=== PATIENT | male | born 1935 | race Caucasian/White ===

== ENCOUNTER 2017-01-23 21:39 | Inpatient (IN) | payer OTHER, MEDICARE ==
[~2017-01-23] VITALS: Ht 175.3 cm; Wt 84.6 kg
[~2017-01-23 21:39] MED LIST: ASPI81 PO; CARD240C6 PO; CITA20TA4 PO; GLUCTAB OR; LORTA5 PO; MAGN420T PO; METO100T PO; NAPR250T57 PO; POTA20IN3 PO; PROBCAP4 PO; PROT40TA PO; ROSU40 PO; SACU1TAB7; VITA400C28 PO
[2017-01-23 21:43] VITALS: BP 145/77; PULSE 77; RESP 18; TEMP 97.3; O2SAT 79; O2SAT 95
[2017-01-23] MEDS ORDERED: methylPREDNISolone SOD SUCC 125 MG/2 ML VIAL IV PUSH ONE (22:15)
[2017-01-23] MEDS ORDERED: LIDOCAINE VISCOUS 2% SOLN 15 ML UDC PO ONE (22:15)
[2017-01-23] MEDS ORDERED: ALUMINUM/MAGNESIUM/SIMETH 30 ML CUP PO ONE (22:15)
[2017-01-23] MEDS ORDERED: SODIUM CHLORIDE 0.9% FLUSH 10 ML FLUSH IV FLUSH PRN (22:15)
--- NOTE | 2017-01-23 22:17 | PD ---
HPI Chief Complaint: Respiratory Symptoms Time Seen by Provider: 21:55 Travel History International Travel<30 days: No Contact w/Intl Traveler<30days: No Traveled to known affect area: No History of Present Illness HPI 81-year-old male here for evaluation of sore throat, intermittent episodes of difficulty breathing, cough, and lightheadedness. Symptoms started yesterday with sore throat. The patient had 5 episodes today where he felt as though his throat may be closing. He is able to swallow and tolerate his secretions without difficulty. Sore throat is moderate to severe. He has had a nonproductive cough today. States he has felt warm, but is unsure if he has had a fever. Feels as though his voice is hoarse. He has no known allergies. PFSH Past Medical History Hx Anticoagulant Therapy: Yes (Eliquis ) Arthritis: Yes Autoimmune Disease: Yes (JOINT DISEASE-CARTILEDGE) Cardiovascular Problems: Yes (A Fib, pacemaker, AL, stents, HTN, high chol) High Cholesterol: Yes Chest Pain: Yes Diabetes: Yes (type 2 ) Diminished Hearing: Yes (HEARING AIDS) Gastrointestinal Disorders: Yes (GASTRITIS, ESOPHAGITIS) GERD: Yes Genitourinary: No Hypertension: Yes Kidney Stones: Yes Musculoskeletal: Yes (BILATERAL KNEES) Neurologic: No Respiratory: No Immunizations Current: Yes Myocardial Infarction: Yes (1986) Sleep Apnea: Yes (USES CPAP) Past Surgical History Abdominal Surgery: Yes (APPENDECTOMY) Appendectomy: Yes Cardiac Surgery: Yes (PACEMAKER 2003, REPLACED 2009) Eye Surgery: Yes (CATARACTS) Joint Replacement: Yes (BILATERAL KNEE REPLACEMENT 11-17) Pacemaker: Yes (2003 GEN CHANGE 2009, [employer]) Social History Alcohol Use: Yes (DAILY GLASS OF WINE) Tobacco Use: No Substance Use: No Allergies-Medications (Allergen,Severity, Reaction): Coded Allergies: No Known Allergies (Verified Adverse Reaction, Unknown, 01/23/17) Reported Meds & Prescriptions Reported Meds & Active Scripts Active Reported Losartan (Losartan Potassium) 25 Mg Tab 25 Mg PO DAILY Metoprolol Succinate ER 24 HR (Metoprolol Succinate) 200 Mg Tab 200 Mg PO DAILY Magnesium Oxide 400 Mg Tab 400 Mg PO BID Rosuvastatin (Rosuvastatin Calcium) 40 Mg Tab 40 Mg PO DAILY Metformin ER (Metformin HCl) 500 Mg Heena 500 Mg PO DAILY With evening meal Eliquis (Apixaban) 5 Mg Tab 5 Mg PO BID Diltiazem ER 24 HR 360 Mg Caper 360 Mg PO DAILY Vitamin B-12 ER (Cyanocobalamin) 2,000 Mcg Tab 2,000 Mcg PO DAILY Vitamin D-1000 (Cholecalciferol) 1,000 Unit Tab 1,000 Units PO DAILY [Lactose Intolerance] 1 Tab PO DAILY [4X Probiotic] 1 Tab PO DAILY Eplerenone 25 Mg Tab 25 Mg PO BID Review of Systems Except as stated in HPI: all other systems reviewed are Neg Physical Exam Narrative GENERAL: Well-developed, well-nourished, comfortable, no apparent distress. SKIN: Focused skin assessment warm/dry. No rashes. HEAD: Atraumatic. Normocephalic. EYES: Pupils equal and round. No scleral icterus. No injection or drainage. ENT: No nasal bleeding or discharge. Mucous membranes pink and moist. Pharynx with moderate edema. Uvula is midline. No exudates. No drooling or stridor. No trismus. NECK: Trachea midline. No JVD. No obvious edema or masses. No induration. CARDIOVASCULAR: Regular rate and rhythm. RESPIRATORY: No accessory muscle use. Clear to auscultation. Breath sounds equal bilaterally. GASTROINTESTINAL: Abdomen soft, non-tender, nondistended. MUSCULOSKELETAL: No obvious deformities. No clubbing. No cyanosis. No edema. NEUROLOGICAL: Awake and alert. No obvious cranial nerve deficits. Motor grossly within normal limits. Normal speech. PSYCHIATRIC: Appropriate mood and affect; insight and judgment normal. Data Data Last Documented VS Vital Signs Date Time Temp Pulse Resp B/P (MAP) Pulse Ox O2 Delivery O2 Flow Rate FiO2 01/23/17 23:55 62 18 136/72 (93) 94 Room Air 01/23/17 21:43 97.3 Orders Orders Complete Blood Count With Diff (01/23/17 22:02) Comprehensive Metabolic Panel (01/23/17 22:02) Prothrombin Time / Inr (Pt) (01/23/17 22:02) Act Partial Throm Time (Ptt) (01/23/17 22:02) Iv Access Insert/Monitor (01/23/17 22:02) Ecg Monitoring (01/23/17 22:02) Oximetry (01/23/17 22:02) Sodium Chloride 0.9% Flush (Ns Flush) (01/23/17 22:15) Al-Mag Hy-Si 40-40-4 Mg/Ml Liq (Mag-Al P (01/23/17 22:15) Lidocaine 2% Viscous (Xylocaine 2% Visco (01/23/17 22:15) Methylprednisolone So Succ Inj (Solumedr (01/23/17 22:15) Ct Soft Tiss Neck W Iv Cont (01/23/17 ) Chest, Single Ap (01/23/17 ) Platelet Count (Plt) (01/23/17 22:36) Influenzae A/B Antigen (01/23/17 22:45) Group A Rapid Strep Screen (01/23/17 22:45) Fibrinogen (01/23/17 22:58) Strep Culture (Group A) (01/23/17 22:48) Iohexol 350 Inj (Omnipaque 350 Inj) (01/23/17 23:24) Labs Laboratory Tests Test 01/23/17 22:01 01/23/17 22:45 01/23/17 23:00 White Blood Count 8.6 TH/MM3 Red Blood Count 4.83 MIL/MM3 Hemoglobin 14.4 GM/DL Hematocrit 42.8 % Mean Corpuscular Volume 88.6 FL Mean Corpuscular Hemoglobin 29.9 PG Mean Corpuscular Hemoglobin Concent 33.7 % Red Cell Distribution Width 13.0 % Platelet Count 17 TH/MM3 22 TH/MM3 Mean Platelet Volume 9.0 FL Neutrophils (%) (Auto) 65.2 % Lymphocytes (%) (Auto) 15.9 % Monocytes (%) (Auto) 12.5 % Eosinophils (%) (Auto) 2.6 % Basophils (%) (Auto) 3.8 % Neutrophils # (Auto) 5.6 TH/MM3 Lymphocytes # (Auto) 1.4 TH/MM3 Monocytes # (Auto) 1.1 TH/MM3 Eosinophils # (Auto) 0.2 TH/MM3 Basophils # (Auto) 0.3 TH/MM3 CBC Comment AUTO DIFF Differential Comment AUTO DIFF CONFIRMED Platelet Estimate LOW Platelet Morphology Comment NORMAL Red Cell Morphology Comment NORMAL Prothrombin Time 10.1 SEC Prothromb Time International Ratio 1.0 RATIO Activated Partial Thromboplast Time 26.4 SEC Blood Urea Nitrogen 16 MG/DL Creatinine 1.20 MG/DL Random Glucose 105 MG/DL Total Protein 7.4 GM/DL Albumin 3.7 GM/DL Calcium Level 8.8 MG/DL Alkaline Phosphatase 64 U/L Aspartate Amino Transf (AST/SGOT) 32 U/L Alanine Aminotransferase (ALT/SGPT) 34 U/L Total Bilirubin 0.3 MG/DL Sodium Level 139 MEQ/L Potassium Level 4.3 MEQ/L Chloride Level 105 MEQ/L Carbon Dioxide Level 22.8 MEQ/L Anion Gap 11 MEQ/L Estimat Glomerular Filtration Rate 58 ML/MIN Fibrinogen 367 mg/dL [facility] Medical Decision Making Medical Screen Exam Complete: Yes Emergency Medical Condition: Yes Differential Diagnosis Pharyngitis, epiglottitis, retropharyngeal abscess, Narrative Course Vital signs show heart rate 77, blood pressure 145/77, pulse ox 95% on room air , oral temp of 97.3F. CBC is remarkable for platelets 17. This was repeated and shows 22. WBC 8.6, hemoglobin 14.4, hematocrit 42.8. CMP is unremarkable. Coags are within normal limits. Group A strep is negative. Influenza is negative. A she made aware of thrombocytopenia and states that he has history of this and is followed by clinical faculty Dr. Emerson. He is not sure why he has history of thrombocytopenia and reports that he has been on steroids in the past for it. Chart review shows that he has had thrombocytopenia on lab work performed here with platelets between 60 and 120. Case discussed with on-call clinical faculty Dr. Lal who recommends checking a fibrinogen level to assess for possible DIC. He states that if the level is less than 150 that the patient should be admitted and given 2 units of cryoprecipitate. A fibrinogen level is within normal limits, then the patient can follow-up as an outpatient with his clinical faculty in the next 1-2 days. The patient was given a dose of solumedrol 125mg IV for his pharyngitis. Fibrinogen level is 367. Ct soft tissue neck: CONCLUSION: 1. Possible left base of tongue mass. 1.5x1.1cm. this is new when compared to CT of the neck from May 2015. 2. No evidence of neck adenopathy. Patient had 3 episodes of shortness of breath and feeling as though his throat was closing. These lasted for about 10 seconds and resolved spontaneously. O2 saturation remained around 98% during each episode. He does feel a fullness in his throat which is more on his left side. At rest there is no drooling or stridor. The patient tells me he feels generalized malaise. Plan is to admit him for overnight observation, repeat platelets in the morning, with possible ENT as well as hematology consultation. He is amenable to this plan. He was given a dose of 125 mg of IV Solu-Medrol as well as a GI cocktail for his pharyngitis. Case discussed with hospitalist Dr. Masters who will admit the patient to her service for overnight observation. Diagnosis Primary Impression: Tongue mass Additional Impressions: Thrombocytopenia Sore throat Dyspnea Qualified Codes: R06.00 - Dyspnea, unspecified Admitting Information Admitting Physician Requests: Observation Lauro Cowan MD Jan 23, 2017 22:17
[2017-01-23 22:21] LABS: AUTOMATED NEUTROPHIL # 5.6 TH/MM3 (1.8-7.7); BASOPHIL # 0.3 TH/MM3 (0-0.2); BASOPHIL % 3.8 % (0.0-2.0); EOSINOPHIL # 0.2 TH/MM3 (0-0.4); EOSINOPHIL % 2.6 % (0.0-4.0); HEMATOCRIT 42.8 % (39.0-51.0); LYMPH % 15.9 % (9.0-44.0); LYMPHOCYTE # 1.4 TH/MM3 (1.0-4.8); MEAN CELL VOLUME 88.6 FL (80.0-100.0); MEAN CORPUSCULAR HEMOGLOBIN 29.9 PG (27.0-34.0); MEAN CORPUSCULAR HGB CONC 33.7 % (32.0-36.0); MONO % 12.5 % (0.0-8.0); NEUT % 65.2 % (16.0-70.0); RED BLOOD COUNT 4.83 MIL/MM3 (4.50-5.90); WHITE BLOOD COUNT 8.6 TH/MM3 (4.0-11.0)
[2017-01-23 22:28] LABS: HEMO FLAGS AUTO DIFF
[2017-01-23 22:30] VITALS: BP 118/61; PULSE 60; RESP 18; O2SAT 94
[2017-01-23 22:33] LABS: PLATELET COUNT 17 TH/MM3 (150-450)
--- NOTE | 2017-01-23 22:34 | RADRPT ---
EXAM DATE/TIME: 01/23/2017 22:21 [facility] COMPARISON: No previous studies available for comparison. INDICATIONS : Shortness of breath, cough. MEDICAL HISTORY : Hypertension. Myocardial infarction. Diabetes mellitus type II. GERD. Arthritis. SURGICAL HISTORY : Pacemaker. Appendectomy. Coronary artery stent. ENCOUNTER: Initial ACUITY: 2 days PAIN SCORE: 0/10 LOCATION: Bilateral chest FINDINGS: A single view of the chest demonstrates pacer leads in right atrium and right ventricle. Tortuous aor ta. Elevated right hemidiaphragm. No pneumothorax. Mild basilar atelectasis. CONCLUSION: 1. Minimal basilar atelectasis. Tortuous aorta. Pacer leads in right atrium and right ventricle. Bhanu Weller MD on January 23, 2017 at 22:32 Board Certified Radiologist. This report was verified electronically.
[2017-01-23 22:39] LABS: CHLORIDE 105 MEQ/L (98-107); POTASSIUM 4.3 MEQ/L (3.5-5.1); SODIUM (NA) 139 MEQ/L (136-145)
[2017-01-23 22:42] LABS: ANION GAP 11 MEQ/L (5-15); BICARBONATE 22.8 MEQ/L (21.0-32.0); BLOOD UREA NITROGEN 16 MG/DL (7-18)
[2017-01-23 22:45] LABS: ALT (GPT) 34 U/L (12-78); AST (GOT) 32 U/L (15-37); GLOMERULAR FILTRATION RATE 58 ML/MIN (>89)
[2017-01-23 22:47] LABS: APTT (PATIENT) 26.4 SEC (24.3-30.1); PROTHROMBIN TIME - PATIENT 10.1 SEC (9.8-11.6); TOTAL BILIRUBIN ADULT 0.3 MG/DL (0.2-1.0)
[2017-01-23 22:48] LABS: ALKALINE PHOSPHATASE 64 U/L (45-117)
[2017-01-23 22:57] LABS: PLATELET ESTIMATE SMEAR LOW (NORMAL); PLATELET MORPHOLOGY NORMAL (NORMAL); SCAN/DIFF AUTO DIFF CONFIRMED
[2017-01-23 23:00] VITALS: BP 132/57; PULSE 62; RESP 18; O2SAT 94
[2017-01-23] MEDS ORDERED: IOHEXOL 350 MG/ML 10 ML VIAL (for RAD DIAG) IVCONTRAST ONE (23:24)
[2017-01-23] MEDS ORDERED: EPLE25TA PO (23:33)
[2017-01-23] MEDS ORDERED: ROSU1TAB10 PO (23:33)
[2017-01-23] MEDS ORDERED: [UNRECOGNIZED DRUG - CODE] PO (23:33)
[2017-01-23] MEDS ORDERED: MAGN400T2 PO (23:33)
[2017-01-23] MEDS ORDERED: VITA1000 PO (23:33)
[2017-01-23] MEDS ORDERED: LOSA25TA PO (23:33)
[2017-01-23] MEDS ORDERED: METF500T4 PO (23:33)
[2017-01-23] MEDS ORDERED: LACTOSE INTOLERANCE PO (23:33)
[2017-01-23] MEDS ORDERED: DILT-46 PO (23:33)
[2017-01-23] MEDS ORDERED: APIX5TAB PO (23:33)
[2017-01-23] MEDS ORDERED: METO-393 PO (23:33)
[2017-01-23] MEDS ORDERED: VITA20004 PO (23:33)
--- NOTE | 2017-01-23 23:45 | RADRPT ---
EXAM DATE/TIME: 01/23/2017 23:04 [facility] COMPARISON: CT SOFT TISSUE NECK W CONTRAST, June 11, 2015, 11:55. INDICATIONS : Difficulty breathing. Evaluate for abscess. IV CONTRAST: 75 cc Omnipaque 350 (iohexol) IV RADIATION DOSE: 13.70 CTDIvol (mGy) MEDICAL HISTORY : Gastroesophageal reflux disease. Cardiovascular disease Esophagitis. SURGICAL HISTORY : Pacemaker. ENCOUNTER: Initial ACUITY: 2 days PAIN SCALE: 3/10 LOCATION: Bilateral neck TECHNIQUE: Volumetric scanning of the neck was performed. Using automated exposure control and adjustment of th e mA and/or kV according to patient size, radiation dose was kept as low as reasonably achievable to obtain optimal diagnostic quality images. DICOM format image data is available electronically for r eview and comparison. FINDINGS: There is asymmetric thickening of the soft tissues adjacent to the posterior left base of tongue whic h causes an asymmetric narrowing of the left oral pharyngeal airway. Cannot exclude a base of tongue mass. The asymmetry measures 1.5 x 1.1 cm. This asymmetry is a new finding compared to prior CT so ft tissue neck 06/11/15. The prevertebral soft tissues are normal in thickness. No evidence of adenopathy in the jugular or s ubmandibular groups. The parotid and submandibular glands are symmetric in appearance. The thyroid gland contains a focal calcification in the posterior lower pole. No hypodense nodules in the thyroi d. Wide windows bony detail demonstrate moderate degenerative changes in the posterior elements of t he lower cervical spine. CONCLUSION: 1. Possible left base of tongue mass. 2. No evidence of neck adenopathy. Kemal Sheikh MD on January 23, 2017 at 23:39 Board Certified Radiologist. This report was verified electronically.
[2017-01-23 23:55] VITALS: BP 136/72; PULSE 62; RESP 18; O2SAT 94
[2017-01-24] VITALS (23 sets, daily range): BP systolic 131–190; BP diastolic 52–98; PULSE 55–98; RESP 14–36; TEMP 96.5–98; O2SAT 92–98
[2017-01-24] MEDS ORDERED: BISACODYL 10 MG SUPP RECTAL PRN (00:30)
[2017-01-24] MEDS ORDERED: LACTULOSE SYRUP 20 GM/30 ML CUP PO PRN (00:30)
[2017-01-24] MEDS ORDERED: SODIUM CHLORIDE 0.9% FLUSH 10 ML FLUSH IV FLUSH PRN (00:30)
[2017-01-24] MEDS ORDERED: NALOXONE HCL 0.4 MG/ML AMP IV PUSH PRN (00:30)
[2017-01-24] MEDS ORDERED: SENNOSIDES 8.6 MG TAB PO PRN (00:30)
[2017-01-24] MEDS ORDERED: ONDANSETRON HCL 4 MG/2 ML VIAL IVP PRN (00:30)
[2017-01-24] MEDS ORDERED: MAGNESIUM HYDROXIDE SUSP 30 ML CUP PO PRN (00:30)
[2017-01-24] MEDS ORDERED: ACETAMINOPHEN 325 MG TAB PO PRN (00:30)
--- NOTE | 2017-01-24 10:56 | MB ---
cc: PAVAN MERA MD DATE OF CONSULTATION: 01/24/2017 CHIEF COMPLAINT Possible tongue mass. HISTORY OF PRESENT ILLNESS The patient is a pleasant 81-year-old male with thrombocytopenia and CT scan showing left tongue base of tongue fullness, 1.5 x 1.1 cm with possible mass there. He has had a couple of episodes of shortness of breath and tenderness to the tongue base. Of note, the patient has a history of low platelets which was 17 and now is currently 22, and he did have a very challenging time with the needle stick along with getting IV and bleeding from the IV. On examination the patient is a pleasant male. Tongue base feels soft currently and with no neck adenopathy. Flexible fiberoptic laryngoscopy revealed a patent airway bilaterally with minimal left base of tongue thickening. ASSESSMENT Left base of tongue fullness, likely inflammatory versus infectious etiology. However, malignancy cannot be completely ruled out. However, recommend with this patient's low platelets and the intermittent pain and swelling that he stay for 48-hours from now with IV antibiotics. IV antibiotics will be determined by the home team or by infectious disease. Also, recommend the patient be sent home with oral antibiotics after at least 48 hours of IV antibiotics, for 2 weeks of home antibiotics. I again recommend the patient stay inpatient for 48 hours for the IV antibiotics. The patient may follow up with ENT as an outpatient in 1-2 weeks for followup and reevaluation. Thank you for this consultation. Of note, I also recommend a soft diet for the next 3 days, to not irritate the airway as per the patient's recent episodes of shortness of breath. Pavan Mera MD CCP/TLL /10:27 AM /10:34 AM
[2017-01-24] MEDS ORDERED: ATORVASTATIN 80 MG TAB PO SCH (11:30)
--- NOTE | 2017-01-24 11:42 | HHI.HP ---
[facility] Roberto Azar III, MD Admission Diagnosis tongue mass, thrombocytopenia, dyspnea episodes Diagnoses: Chief Complaint: Sore throat Travel History International Travel<30 Days: No Contact w/Intl Traveler <30 Da: No Traveled to Known Affected Are: No History of Present Illness This patient is a 81-year-old gentleman with a history of diabetes and hypertension and atrial fibrillation was consulted emergency room with 1 day of sore throat with progressive dysphagia and progressive cough. He denies any fevers or chills. No recent sick contacts. He says that he was having worsening pain and difficulty swallowing so he came to the emergency room. Pain was worse with movement. He has been admitted to the progressive care unit for closer evaluation. On exam he has minimal lymphadenopathy. Images of the neck due to show possible tongue mass. For this he was seen by the ENT specialist. Respirations are for antibiotics and further observation. Patient has and informed the plan. This discomfort is improved. His diet will be advanced and the patient will continue to monitor inpatient Review of Systems Constitutional: DENIES: Diaphoretic episodes, Fatigue, Fever, Weight gain, Weight loss, Chills, Dizziness, Change in appetite, Night Sweats Endocrine: DENIES: Heat/cold intolerance, Polydipsia, Polyuria, Polyphagia Eyes: DENIES: Blurred vision, Diplopia, Eye inflammation, Eye pain, Vision loss , Photosensitivity, Double Vision Ears, nose, mouth, throat: DENIES: Tinnitus, Hearing loss, Vertigo, Nasal discharge, Oral lesions, Throat pain, Hoarseness, Ear Pain, Running Nose, Epistaxis, Sinus Pain, Toothache, Odynophagia Respiratory: COMPLAINS OF: Cough, DENIES: Apneas, Snoring, Wheezing, Hemoptysis , Sputum production, Shortness of breath Cardiovascular: DENIES: Chest pain, Palpitations, Syncope, Dyspnea on Exertion , PND, Lower Extremity Edema, Orthopnea, Claudication Gastrointestinal: COMPLAINS OF: Difficulty Swallowing, DENIES: Abdominal pain, Black stools, Bloody stools, Constipation, Diarrhea, Nausea, Vomiting, Anorexia Genitourinary: DENIES: Sexual dysfunction, Urinary frequency, Urinary incontinence, Urgency, Hematuria, Dysuria, Nocturia, Penile Discharge, Testicular Pain, Testicular Swelling Musculoskeletal: DENIES: Joint pain, Muscle aches, Stiffness, Joint Swelling, Back pain, Neck pain Integumentary: DENIES: Abnormal pigmentation, Nail changes, Pruritus, Rash Immunologic/allergic: DENIES: Eczema, Urticaria Neurologic: DENIES: Abnormal gait, Headache, Localized weakness, Paresthesias, Seizures, Speech Problems, Tremor, Poor Balance Psychiatric: DENIES: Anxiety, Confusion, Mood changes, Depression, Hallucinations, Agitation, Suicidal Ideation, Homicidal Ideation, Delusions Except as stated in HPI: all other systems reviewed are Neg Past Family Social History Past Medical History Diabetes Hypertension Atrial fibrillation colon Polyps Chronic thrombocytopenia Past Surgical History Bilateral total knee arthroplasty, right total hip arthroplasty, appendectomy Reported Medications Reviewed in the EMR Allergies: Coded Allergies: No Known Allergies (Verified Allergy, Unknown, 01/24/17) Family History Mother had hypertension Social History No current tobacco, alcohol cocktail daily, , from [place] Physical Exam Vital Signs Vital Signs Date Time Temp Pulse Resp B/P (MAP) Pulse Ox O2 Delivery O2 Flow Rate FiO2 01/24/17 11:00 67 01/24/17 09:00 80 01/24/17 09:00 80 36 94 01/24/17 08:00 72 01/24/17 08:00 66 19 153/77 (102) 92 01/24/17 08:00 97.6 01/24/17 08:00 66 01/24/17 07:53 64 01/24/17 07:00 62 01/24/17 06:27 63 01/24/17 05:57 60 01/24/17 05:57 97.6 58 14 131/52 (78) 95 01/24/17 03:10 95 30 01/24/17 03:05 55 01/24/17 02:00 62 01/24/17 01:42 98.0 98 24 176/93 (120) 94 01/24/17 01:20 01/24/17 00:55 59 18 133/73 (93) 96 Room Air 01/23/17 23:55 62 18 136/72 (93) 94 Room Air 01/23/17 23:00 62 18 132/57 (82) 94 Room Air 01/23/17 22:30 18 94 Room Air 01/23/17 22:30 60 18 118/61 (80) 94 Room Air 01/23/17 22:20 60 18 94 Room Air 01/23/17 21:43 97.3 77 18 145/77 (99) 95 Physical Exam GENERAL: This is a well-nourished, well-developed patient, in no apparent distress. SKIN: No rashes, ecchymoses or lesions. Cool and dry. HEAD: Atraumatic. Normocephalic. No temporal or scalp tenderness. EYES: Pupils equal round and reactive. Extraocular motions intact. No scleral icterus. No injection or drainage. ENT: Nose without bleeding, purulent drainage or septal hematoma. Throat without erythema, tonsillar hypertrophy or exudate. Uvula midline. Airway patent. NECK: Trachea midline. No JVD or lymphadenopathy. Supple, nontender, no meningeal signs. CARDIOVASCULAR: Regular rate and rhythm without murmurs, gallops, or rubs. RESPIRATORY: Clear to auscultation. Breath sounds equal bilaterally. No wheezes , rales, or rhonchi. GASTROINTESTINAL: Abdomen soft, non-tender, nondistended. No hepato-splenomegaly , or palpable masses. No guarding. MUSCULOSKELETAL: Extremities without clubbing, cyanosis, or edema. No joint tenderness, effusion, or edema noted. No calf tenderness. Negative Homans sign bilaterally. NEUROLOGICAL: Awake and alert. Cranial nerves II through XII intact. Motor and sensory grossly within normal limits. Five out of 5 muscle strength in all muscle groups. Normal speech. Laboratory Laboratory Tests Test 01/23/17 22:01 01/23/17 22:45 01/23/17 23:00 White Blood Count 8.6 Red Blood Count 4.83 Hemoglobin 14.4 Hematocrit 42.8 Mean Corpuscular Volume 88.6 Mean Corpuscular Hemoglobin 29.9 Mean Corpuscular Hemoglobin Concent 33.7 Red Cell Distribution Width 13.0 Platelet Count 17 22 Mean Platelet Volume 9.0 Neutrophils (%) (Auto) 65.2 Lymphocytes (%) (Auto) 15.9 Monocytes (%) (Auto) 12.5 Eosinophils (%) (Auto) 2.6 Basophils (%) (Auto) 3.8 Neutrophils # (Auto) 5.6 Lymphocytes # (Auto) 1.4 Monocytes # (Auto) 1.1 Eosinophils # (Auto) 0.2 Basophils # (Auto) 0.3 CBC Comment AUTO DIFF Differential Comment AUTO DIFF CONFIRMED Platelet Estimate LOW Platelet Morphology Comment NORMAL Red Cell Morphology Comment NORMAL Prothrombin Time 10.1 Prothromb Time International Ratio 1.0 Activated Partial Thromboplast Time 26.4 Blood Urea Nitrogen 16 Creatinine 1.20 Random Glucose 105 Total Protein 7.4 Albumin 3.7 Calcium Level 8.8 Alkaline Phosphatase 64 Aspartate Amino Transf (AST/SGOT) 32 Alanine Aminotransferase (ALT/SGPT) 34 Total Bilirubin 0.3 Sodium Level 139 Potassium Level 4.3 Chloride Level 105 Carbon Dioxide Level 22.8 Anion Gap 11 Estimat Glomerular Filtration Rate 58 Fibrinogen 367 Date/Time Source Procedure Growth Status 01/23/17 22:48 Throat Group A Streptococcus Screen Pending Received Result Diagram: 01/23/17224401/23/172200 Caprindiana VTE Risk Assessment Caprini VTE Risk Assessment: Mod/High Risk (score >= 2) VTE Pharm Contraindication: High risk for bleeding Caprini Risk Assessment Model Point Value = 1 Point Value = 2 Point Value = 3 Point Value = 5 Age 41-60 Minor surgery BMI > 25 kg/m2 Swollen legs Varicose veins or History of unexplained or recurrent spontaneous Oral contraceptives or hormone replacement Sepsis (< 1 month) Serious lung disease, including pneumonia (< 1 month) Abnormal pulmonary function Acute myocardial infarction Congestive heart failure (< 1 month) History of inflammatory bowel disease Medical patient at bed rest Age 61-74 Arthroscopic surgery Major open surgery (> 45 min) Laparoscopic surgery (> 45 min) Malignancy Confined to bed (> 72 hours) Immobilizing plaster cast Central venous access Age >= 75 History of VTE Family history of VTE Factor V Leiden Prothrombin [id number] Lupus anticoagulant Anticardiolipin antibodies Elevated serum homocysteine Heparin-induced thrombocytopenia Other congenital or acquired thrombophilia Stroke (< 1 month) Elective arthroplasty Hip, pelvis, or leg fracture Acute spinal cord injury (< 1 month) Prophylaxis Regimen Total Risk Factor Score Risk Level Prophylaxis Regimen 0-1 Low Early ambulation 2 Moderate Order ONE of the following: *Sequential Compression Device (SCD) *Heparin 5000 units SQ BID 3-4 Higher Order ONE of the following medications: *Heparin 5000 units SQ TID *Enoxaparin/Lovenox 40 mg SQ daily (WT < 150 kg, CrCl > 30 mL/min) *Enoxaparin/Lovenox 30 mg SQ daily (WT < 150 kg, CrCl > 10-29 mL/min) *Enoxaparin/Lovenox 30 mg SQ BID (WT < 150 kg, CrCl > 30 mL/min) AND/OR *Sequential Compression Device (SCD) 5 or more Highest Order ONE of the following medications: *Heparin 5000 units SQ TID (Preferred with Epidurals) *Enoxaparin/Lovenox 40 mg SQ daily (WT < 150 kg, CrCl > 30 mL/min) *Enoxaparin/Lovenox 30 mg SQ daily (WT < 150 kg, CrCl > 10-29 mL/min) *Enoxaparin/Lovenox 30 mg SQ BID (WT < 150 kg, CrCl > 30 mL/min) AND *Sequential Compression Device (SCD) Assessment and Plan Problem List: (1) DM2 (diabetes mellitus, type 2) ICD Code: E11.9 - Type 2 diabetes mellitus without complications Plan: We'll hold metformin for now, follow-up on diabetic diet Accu-Cheks and Sliding scale as needed (2) Afib ICD Code: I48.91 - Unspecified atrial fibrillation Plan: On Eliquis, Cardizem and metoprolol We'll hold Eliquis due to patient's thrombocytopenia No active bleeding at this time (3) Tongue mass ICD Code: R22.0 - Localized swelling, mass and lump, head Status: Acute Plan: probably infectious versus inflammatory Continue IV clindamycin for 48 hours Soft diet ENT eval appreciated (4) Thrombocytopenia ICD Code: D69.6 - Thrombocytopenia, unspecified Status: Acute Plan: Chronic for several years. Patient has never had platelets "this low ". There is no active bleeding at this time Patient requests second opinion from local hematology Assessment and Plan Plan of care to be determined by Hospital course Code Status DO NOT RESUSCITATE Discussed Condition With CLINICAL PROGRAM CONSULTANT Patient and spouse Physician Certification 2 Midnight Certification Type: Admission for Inpatient Services Order for Inpatient Services The services are ordered in accordance with Medicare regulations or non- Medicare payer requirements, as applicable. In the case of services not specified as inpatient-only, they are appropriately provided as inpatient services in accordance with the 2-midnight benchmark. Estimated LOS (days): 3 3 days is the estimated time the patient will need to remain in the hospital, assuming treatment plan goals are met and no additional complications. Post-Hospital Plan: Ofe Murdock MD Jan 24, 2017 11:42
[2017-01-24] MEDS: DOCUSATE SODIUM 50 MG/SENNA 8.6 MG TAB PO SCH ×2 (12:43→20:15)
[2017-01-24] MEDS: LOSARTAN 25 MG TAB PO SCH (12:43)
[2017-01-24] MEDS: METOPROLOL SUCCINATE 50 MG EXTENDED RELEASE TAB PO SCH (12:43)
[2017-01-24] MEDS: ATORVASTATIN 40 MG TAB PO SCH (12:43)
[2017-01-24] MEDS: SODIUM CHLORIDE 0.9% FLUSH 10 ML FLUSH IV FLUSH SCH ×2 (12:44→21:32)
[2017-01-24] MEDS: CLINDAMYCIN 600 MG/NS PREMIX 50 ML IV SCH ×2 (13:41→21:32)
[2017-01-24] MEDS ORDERED: ACETAMINOPHEN 325 MG TAB PO SCH ×2 (17:30→18:15)
[2017-01-24] MEDS ORDERED: diphenhydrAMINE HCL 25 MG CAP PO SCH ×2 (17:30→18:15)
[2017-01-24] MEDS ORDERED: DEXTROSE 5% IN WATE 500 ML INJ 500 ML OTHER SCH (18:19)
[2017-01-24] MEDS ORDERED: EPINEPHrine HCL (1:1000) 1 MG/ML VIAL OTHER PRN (18:30)
[2017-01-24] MEDS ORDERED: diphenhydrAMINE HCL 50 MG/ML VIAL IV PUSH PRN (18:30)
[2017-01-24] MEDS: SODIUM CHLORID 0.9% 500 ML INJ 500 ML IV SCH (20:07)
--- NOTE | 2017-01-24 20:50 | MB ---
cc: SERA LÓPEZ MD, ABDUL J. M.D. DATE OF CONSULTATION: 01/24/2017 REASON FOR CONSULTATION: Evaluation of severe thrombocytopenia. HISTORY OF PRESENT ILLNESS Robert is a pleasant 81-year-old male. He has a history of chronic thrombocytopenia for the last 10 years or so. He is a winter visitor from [place]. He also goes to the [facility] for his medical treatment. He says that five years ago he saw a [facility] who has prescribed prednisone 95 mg. The patient stated that he was unable to tolerate that dose and he was only able to take it for two weeks. He had severe confusion, restlessness and had multiple falls. It was decided not to treat him with the steroid anymore. He stated that his platelet count at that time was 50,000 and it went up to 60 or 65,000. Last year when he needed coronary stent in [place], he saw another strategy specialist. The patient does not recall what treatment he had received and his platelet count went up and they were able to put the stent in. The patient also saw [facility] strategy specialist Dr. Emerson last year. The patient was referred by his primary care physician, Dr. Roberto Azar to Dr. Jonathon Emerson for the chronic Thrombocytopenia. Those records are not available. According to the patient, Dr. Emerson did not recommend any treatment as his platelet count was around 50,000. He states that his platelet count usually runs around 50,000. He does not have any bleeding, nor bruises or petechiae. The patient had been having problem with dysphagia and he thought he had a sore throat. He came to the emergency room last night. He was complaining of sore throat, intermittent episodes of difficulty breathing, cough and lightheadedness. He thought that his throat was closing on him. He did not have any trouble swallowing solids or liquids. He did not have any fever. He had a CT scan of the soft tissue neck which showed left base of tongue mass. There is no evidence of cervical lymphadenopathy noted. ENT was consulted. The patient was evaluated by Dr. Pavan Mera. I reviewed his note which indicates that the patient could possibly have inflammatory or infectious etiology of the mass at the base of the tongue, however, malignancy cannot be ruled out. He recommended that the patient should be treated with IV antibiotics for at least 48 hours and he will follow him up as an outpatient in one to two weeks. The patient had a CBC yesterday which came back normal except the platelet count was low at 17. It was repeated and it came back at 22. Because of the severe thrombocytopenia I have been asked to see him for further evaluation. The patient is very pleasant. He is sitting on the chair. He just moved from ICU to the regular floor. He is anxious to go home. He thought that he just came in for sore throat and he will go home with the antibiotics. The rest of the review of systems is negative. PAST MEDICAL HISTORY: 1. Diabetes mellitus. 2. Hypertension. 3. Atrial fibrillation. 4. Colonic polyp. 5. Chronic thrombocytopenia. 6. Coronary artery disease. PAST SURGICAL HISTORY: 1. Bilateral total knee replacement. 2. Hip surgery. 3. Appendectomy. ALLERGIES: NONE. MEDICATIONS: 1. Pericolace. 2. Cardizem. 3. Cozaar. 4. Toprol. 5. Lipitor. 6. Clindamycin. FAMILY HISTORY: Not significant for any malignancy. SOCIAL HISTORY: The patient does not smoke cigarettes, does not drink alcohol. He is from [place]. He spends the winter in [place]. PHYSICAL EXAMINATION: The patient is a well-developed, well-nourished white male in no apparent distress. VITAL SIGNS: Temperature 97.9, heart rate is 66, blood pressure is 183/98. O2 saturation 92%. HEENT: PERRLA, EOMI. Anicteric. No oral lesions noted. NECK: No lymphadenopathy noted. LUNGS: Clear. No rales, rhonchi or wheezing. HEART: Regular rate and rhythm. ABDOMEN: Soft, nontender. No hepatosplenomegaly. EXTREMITIES: No pedal edema. NEUROLOGIC: Awake, alert, oriented x3. SKIN: No significant lesions noted. ASSESSMENT: 1. Severe profound isolated thrombocytopenia. 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 2. Mass at the base of the tongue which could be inflammatory versus neoplastic. 3. Atrial fibrillation on Eliquis under the care of Dr. Baker, local log peeler. PLAN: I have reviewed his available records and I had an extensive discussion with the patient regarding the isolated severe thrombocytopenia. He has a history of chronic thrombocytopenia for the last 10 years. He states that his baseline platelet count is around 50,000. Yesterday on admission his platelet count was 17,000 , which was repeated and came back low again at 22,000. The patient has developed acute severe ITP. He is at high risk for internal bleeding and complications from that. Since the patient will need possible biopsy of the tongue mass, my recommendation is to treat him with the IVIG one gram per kilogram daily for two days. We discussed the risks, benefits and alternatives of the IVIG. We discussed the side effects of the IVIG. The patient has agreed to it. Also I will treat him with low dose prednisone as he was unable to tolerate high dose prednisone 95 milligrams five years ago which was given by the [facility] strategy specialist. He took it only for two weeks. The patient agreed with that plan as well. I have discussed the case with his nurse as well as hospitalist, Dr. López. Patient's local primary care physician is Roberto Azar and his local log peeler is Dr. Baker, and his local strategy specialist is Dr. Emerson. I recommend that once he is discharged to home, he can follow up with his strategy specialist Dr. Emerson. Patient has asked several questions and these were answered to his satisfactory. The patient also had coagulation tests and there is no evidence of DIC. His PT is 10.1, INR is 1, APTT is 26.4, fibrinogen is 367. His comprehensive metabolic profile is normal except the GFR is 58. The chest x-ray shows minimal basilar atelectasis and tortuous aorta. The patient has pacer leads in the right atrium and right ventricle. Thank you, Dr. López, for asking my opinion. Will follow him while he is in the hospital and upon discharge he will see his local strategy specialist, Dr. Demarcus Emerson. MD SANDRA Figueredo/SHIRIN /5:24 PM /8:14 PM SAFIA
[2017-01-24] MEDS: IMMUNE GLOBULIN INJ 80 GM in SYRINGE/BAG 1 EA IV SCH (21:31)
[2017-01-24] MEDS: predniSONE 20 MG TAB PO SCH (21:33)
[2017-01-24] MEDS: cloNIDine HCL 0.1 MG TAB PO PRN (21:51)
[2017-01-25] VITALS (15 sets, daily range): BP systolic 141–186; BP diastolic 67–91; PULSE 59–80; RESP 13–20; TEMP 95.6–97.8; O2SAT 95–100
[2017-01-25] MEDS: SODIUM CHLORID 0.9% 500 ML INJ 500 ML IV SCH
[2017-01-25] MEDS: IMMUNE GLOBULIN INJ 80 GM in SYRINGE/BAG 1 EA IV SCH (01:05)
[2017-01-25] MEDS: CLINDAMYCIN 600 MG/NS PREMIX 50 ML IV SCH ×3 (04:56→20:41)
[2017-01-25 06:07] LABS: AUTOMATED NEUTROPHIL # 10.2 TH/MM3 (1.8-7.7); BASOPHIL % 0.1 % (0.0-2.0); HEMATOCRIT 38.7 % (39.0-51.0); LYMPH % 5.1 % (9.0-44.0); LYMPHOCYTE # 0.6 TH/MM3 (1.0-4.8); MEAN CELL VOLUME 89.2 FL (80.0-100.0); MEAN CORPUSCULAR HEMOGLOBIN 29.9 PG (27.0-34.0); MEAN CORPUSCULAR HGB CONC 33.5 % (32.0-36.0); MONO % 5.5 % (0.0-8.0); NEUT % 89.3 % (16.0-70.0); PLATELET COUNT 46 TH/MM3 (150-450); RED BLOOD COUNT 4.34 MIL/MM3 (4.50-5.90); WHITE BLOOD COUNT 11.4 TH/MM3 (4.0-11.0)
[2017-01-25 06:10] LABS: HEMO FLAGS AUTO DIFF
[2017-01-25 06:14] LABS: POTASSIUM 4.1 MEQ/L (3.5-5.1)
[2017-01-25 06:20] LABS: BICARBONATE 22.9 MEQ/L (21.0-32.0)
[2017-01-25 06:25] LABS: PLATELET ESTIMATE SMEAR LOW (NORMAL); PLATELET MORPHOLOGY NORMAL (NORMAL); SCAN/DIFF AUTO DIFF CONFIRMED
[2017-01-25] MEDS: LOSARTAN 25 MG TAB PO SCH (09:14)
[2017-01-25] MEDS: DILTIAZEM-CD 180 MG CAP ER PO SCH (09:15)
[2017-01-25] MEDS: predniSONE 20 MG TAB PO SCH ×2 (09:15→20:42)
[2017-01-25] MEDS: METOPROLOL SUCCINATE 50 MG EXTENDED RELEASE TAB PO SCH (09:15)
[2017-01-25] MEDS: SODIUM CHLORIDE 0.9% FLUSH 10 ML FLUSH IV FLUSH SCH ×2 (09:15→21:11)
[2017-01-25] MEDS: DOCUSATE SODIUM 50 MG/SENNA 8.6 MG TAB PO SCH ×2 (09:15→21:00)
[2017-01-25] MEDS: ATORVASTATIN 40 MG TAB PO SCH (09:15)
[2017-01-25] MEDS ORDERED: ACETAMINOPHEN 325 MG TAB PO ONE ×2 (10:00→20:00)
[2017-01-25] MEDS ORDERED: diphenhydrAMINE HCL 25 MG CAP PO ONE ×2 (10:00→20:00)
[2017-01-25] MEDS ORDERED: SODIUM CHLORID 0.9% 500 ML INJ 500 ML IV ONE ×2 (10:00→20:00)
[2017-01-25] MEDS ORDERED: IMMUNE GLOBULIN INJ 40 GM in SYRINGE/BAG 1 EA IV ONE (11:00)
[2017-01-25] MEDS: DEXTROSE 5% IN WATE 500 ML INJ 500 ML OTHER SCH ×2 (11:00→22:25)
[2017-01-25] MEDS ORDERED: BENZOCAINE-MENTHOL (SUGAR FREE) 15 MG-3.6 MG LOZENGE BUCCAL PRN (13:30)
--- NOTE | 2017-01-25 13:32 | HHI.PR ---
Subjective Remarks Seen and evaluated in follow-up for inflammation of the throat with possible mass. 4 thrombocytopenia as well. Case discussed with Dr. Taylor yesterday. Platelets are improved today. Discharge plans discussed for tomorrow. Patient is complaining of some throat pain and has requested lozenges Objective Vitals Vital Signs Date Time Temp Pulse Resp B/P (MAP) Pulse Ox O2 Delivery O2 Flow Rate FiO2 01/25/17 09:17 96.8 66 16 178/88 (118) 97 01/25/17 05:10 99 30 01/25/17 04:00 95.6 74 16 159/80 (106) 100 01/25/17 02:15 96.2 61 16 186/83 (117) 99 01/25/17 01:25 100 30 01/25/17 01:15 96.4 60 18 156/77 (103) 100 01/25/17 01:15 96.2 59 20 144/67 (92) 100 01/25/17 01:05 61 20 171/77 01/25/17 01:00 96.1 61 13 171/77 (108) 100 01/25/17 00:00 96.1 60 20 154/72 (99) 100 01/24/17 23:00 96.7 61 15 159/69 (99) 98 01/24/17 22:10 98 30 01/24/17 22:00 96.7 61 20 173/74 (107) 97 01/24/17 21:45 97.4 66 20 188/79 (115) 94 01/24/17 21:31 91 20 150/84 01/24/17 20:24 75 01/24/17 20:00 97.6 55 18 150/84 (106) 97 01/24/17 17:34 96.5 60 14 177/74 (108) 98 01/24/17 16:08 76 I/O 01/24/17 01/24/17 01/24/17 01/25/17 01/25/17 01/25/17 07:00 15:00 23:00 07:00 15:00 23:00 Intake Total 1030 ml 1210 ml Output Total 550 ml 250 ml Balance -550 ml 1030 ml 960 ml Intake Oral 480 ml 240 ml IV Total 550 ml 970 ml Output Urine Total 550 ml 250 ml # Voids 1 4 # Bowel Movements 0 0 Result Diagram: 01/25/17 0520 01/25/17 0520 Imaging Last Impressions Neck CT 01/23/17 0000 Signed Impressions: Service Date/Time: Monday, January 23, 2017 23:04 - CONCLUSION: 1. Possible left base of tongue mass. 2. No evidence of neck adenopathy. Kemal Sheikh MD Chest X-Ray 01/23/17 0000 Signed Impressions: Service Date/Time: Monday, January 23, 2017 22:21 - CONCLUSION: 1. Minimal basilar atelectasis. Tortuous aorta. Pacer leads in right atrium and right ventricle. Bhanu Weller MD Objective Remarks GENERAL: This is a well-nourished, well-developed patient, in no apparent distress. CARDIOVASCULAR: Regular rate and rhythm without murmurs, gallops, or rubs. RESPIRATORY: Clear to auscultation. Breath sounds equal bilaterally. No wheezes , rales, or rhonchi. GASTROINTESTINAL: Abdomen soft, non-tender, nondistended. Normal active bowel sounds MUSCULOSKELETAL: Extremities without clubbing, cyanosis, or edema. NEURO: Alert & Oriented x4 to person, place, time, situation. Moves all ext x4 A/P Problem List: (1) DM2 (diabetes mellitus, type 2) ICD Code: E11.9 - Type 2 diabetes mellitus without complications Plan: Continue ADA diet, controlled Accu-Cheks and Sliding scale as needed (2) Afib ICD Code: I48.91 - Unspecified atrial fibrillation Plan: On Eliquis, Cardizem and metoprolol Resume Eliquis (3) Tongue mass ICD Code: R22.0 - Localized swelling, mass and lump, head Status: Acute Plan: probably infectious versus inflammatory Continue IV clindamycin for 48 hours Soft diet ENT eval appreciated (4) Thrombocytopenia ICD Code: D69.6 - Thrombocytopenia, unspecified Status: Acute Plan: Improved Patient with a history of ITP Continue IVIG Patient follow-up with his outpatient plating stripper Discharge Planning Likely discharge in Ofe Jaimes MD Jan 25, 2017 13:32
[2017-01-25] MEDS ORDERED: GLUCAGON 1 MG/ML VIAL OTHER PRN (13:45)
[2017-01-25] MEDS ORDERED: DEXTROSE 50% IN WATER 50 ML VIAL(D50) IV PUSH PRN (13:45)
[2017-01-25] MEDS: INSULIN ASPART SUPPLEMENTAL SCALE SQ SCH ×2 (16:48→21:00)
[2017-01-25] MEDS ORDERED: IMMUNE GLOBULIN INJ 80 GM in SYRINGE/BAG 1 EA IV ONE (21:00)
[2017-01-26] VITALS (8 sets, daily range): BP systolic 144–176; BP diastolic 76–85; PULSE 60–80; RESP 18; TEMP 97.6–97.7; O2SAT 96–98
--- NOTE | 2017-01-26 01:33 | PD.ONC.PN ---
Subjective Subjective Remarks Late Note Entry. Patient sen on 01/25. Patient is sitting in bedside chair with at bedside. Objective Data Date Time Temp Pulse Resp B/P (MAP) Pulse Ox O2 Delivery O2 Flow Rate FiO2 01/26/17 00:15 73 168/79 (108) 01/26/17 00:00 73 168/79 (108) 01/25/17 23:40 98 30 01/25/17 23:15 80 141/74 (96) 01/25/17 23:00 97.7 60 17 165/80 (108) 98 01/25/17 22:24 74 18 146/83 01/25/17 20:00 97.8 74 18 146/83 (104) 99 01/25/17 17:56 96.7 66 18 184/91 (122) 98 01/25/17 14:47 96.7 60 16 141/82 (101) 95 01/25/17 14:00 66 14 128/88 01/25/17 09:17 96.8 66 16 178/88 (118) 97 01/25/17 05:10 99 30 01/25/17 04:00 95.6 74 16 159/80 (106) 100 01/25/17 02:15 96.2 61 16 186/83 (117) 99 01/25/17 01:25 100 30 01/25/17 01:15 96.4 60 18 156/77 (103) 100 01/25/17 01:15 96.2 59 20 144/67 (92) 100 Result Diagram: 01/25/17 0520 01/25/17 0520 Laboratory Results Laboratory Tests Test 01/25/17 05:20 White Blood Count 11.4 TH/MM3 Red Blood Count 4.34 MIL/MM3 Hemoglobin 13.0 GM/DL Hematocrit 38.7 % Mean Corpuscular Volume 89.2 FL Mean Corpuscular Hemoglobin 29.9 PG Mean Corpuscular Hemoglobin Concent 33.5 % Red Cell Distribution Width 13.0 % Platelet Count 46 TH/MM3 Mean Platelet Volume 9.5 FL Neutrophils (%) (Auto) 89.3 % Lymphocytes (%) (Auto) 5.1 % Monocytes (%) (Auto) 5.5 % Eosinophils (%) (Auto) 0.0 % Basophils (%) (Auto) 0.1 % Neutrophils # (Auto) 10.2 TH/MM3 Lymphocytes # (Auto) 0.6 TH/MM3 Monocytes # (Auto) 0.6 TH/MM3 Eosinophils # (Auto) 0.0 TH/MM3 Basophils # (Auto) 0.0 TH/MM3 CBC Comment AUTO DIFF Differential Comment AUTO DIFF CONFIRMED Platelet Estimate LOW Platelet Morphology Comment NORMAL Red Cell Morphology Comment NORMAL Blood Urea Nitrogen 22 MG/DL Creatinine 0.98 MG/DL Random Glucose 145 MG/DL Calcium Level 8.1 MG/DL Sodium Level 139 MEQ/L Potassium Level 4.1 MEQ/L Chloride Level 106 MEQ/L Carbon Dioxide Level 22.9 MEQ/L Anion Gap 10 MEQ/L Estimat Glomerular Filtration Rate 73 ML/MIN Culture Results Microbiology Date/Time Source Procedure Growth Status 01/23/17 22:48 Throat Group A Streptococcus Screen - Final NO GP A BETA STREP ISOLATED. Complete 01/23/17 22:48 Nasal Washing Influenza Types A,B Antigen (DEEPTHI) - Final NEGATIVE FOR FLU A AND B ANTIGEN.... Complete 01/23/17 22:48 Throat Group A Streptococcus Screen (DEEPTHI) - Final Complete Administered Medications Medications (Trade) Dose Ordered Sig/Magdy Route PRN Reason Start Time Stop Time Status Last Admin Dose Admin Sodium Chloride (NS Flush) 2 ml BID IV FLUSH 01/24/17 09:00 01/25/17 21:11 Senna/Docusate Sodium (Zuleyka-Colace) 1 tab BID PO 01/24/17 09:00 01/25/17 09:15 Diltiazem HCl (Cardizem Cd) 360 mg DAILY PO 01/25/17 09:00 01/25/17 09:15 Losartan Potassium (Cozaar) 25 mg DAILY PO 01/24/17 11:30 01/25/17 09:14 Metoprolol Succinate (Toprol Xl) 200 mg DAILY PO 01/24/17 11:30 01/25/17 09:15 Atorvastatin Calcium (Lipitor) 80 mg DAILY PO 01/24/17 11:30 01/25/17 09:15 Clindamycin/ Sodium Chloride 50 ml @ 100 mls/hr Q8H IV 01/24/17 12:00 01/25/17 20:41 Prednisone (Deltasone) 20 mg BID PO 01/24/17 21:00 01/25/17 20:42 Clonidine (Catapres) 0.1 mg Q6H PRN PO SBP > 160 AND DBP > 90 01/24/17 19:45 01/24/17 21:51 Dextrose 500 ml @ 30 mls/hr [id number] OTHER 01/25/17 11:00 01/26/17 12:00 01/25/17 22:25 Immune Globulin 80 gm/Syringe / Bag 800 ml @ 25.68 mls/ hr ONCE ONCE IV 01/25/17 21:00 01/27/17 04:09 01/25/17 22:24 Immune Globulin 40 gm/Syringe / Bag 400 ml @ 25.68 mls/ hr ONCE ONCE IV 01/25/17 11:00 01/26/17 02:34 01/25/17 14:00 Benzocaine/Menthol (Cepacol Extra Zay (Sugar Free)) 1 lozenge Q2HR PRN BUCCAL throat pain 01/25/17 13:30 01/25/17 16:43 Objective Remarks GENERAL: Well-nourished, well-developed patient. SKIN: Warm and dry. HEAD: Normocephalic. EYES: No scleral icterus. No injection or drainage. NECK: Supple, trachea midline. No JVD or lymphadenopathy. LYMPHATIC: No adenopathy. CARDIOVASCULAR: Regular rate and rhythm without murmurs. RESPIRATORY: Breath sounds equal bilaterally. No accessory muscle use. GASTROINTESTINAL: Abdomen soft, non-tender, nondistended. EXTREMITIES: No cyanosis, or edema. MUSCULOSKELETAL: Adequate muscle tone. NEUROLOGICAL: No obvious focal deficit. Awake, alert, and oriented x3. PSYCHIATRIC: Appropriate mood and affect; insight and judgment normal. Assessment/Plan Assessment 1. ITP: chronic ITP with severe low platelet count of approximately 20K on admission. Previous platelet values per patient approximately 50K. He is on prednisone 20 mg Qdaily and IVIG with improvement in platelet count. 2. Head and neck lesion: Left tongue lesion. Patient has been evaluated by ENT. He will have antibiotic therapy and follow up closely with Dr. Mera in the outpatient setting. Filomena Ho MD Jan 26, 2017 01:33
[2017-01-26] MEDS: cloNIDine HCL 0.1 MG TAB PO PRN (01:34)
[2017-01-26] MEDS: CLINDAMYCIN 600 MG/NS PREMIX 50 ML IV SCH (04:09)
[2017-01-26] MEDS: INSULIN ASPART SUPPLEMENTAL SCALE SQ SCH (08:00)
[2017-01-26] MEDS: METOPROLOL SUCCINATE 50 MG EXTENDED RELEASE TAB PO SCH (08:32)
[2017-01-26] MEDS: ATORVASTATIN 40 MG TAB PO SCH (08:32)
[2017-01-26] MEDS: DOCUSATE SODIUM 50 MG/SENNA 8.6 MG TAB PO SCH (08:32)
[2017-01-26] MEDS: predniSONE 20 MG TAB PO SCH (08:32)
[2017-01-26] MEDS: DILTIAZEM-CD 180 MG CAP ER PO SCH (08:32)
[2017-01-26] MEDS: LOSARTAN 25 MG TAB PO SCH (08:32)
[2017-01-26] MEDS: SODIUM CHLORIDE 0.9% FLUSH 10 ML FLUSH IV FLUSH SCH (08:33)
[2017-01-26] MEDS ORDERED: CLEO300C2 PO (11:11)
[2017-01-26] MEDS ORDERED: PRED20 PO (11:11)
--- NOTE | 2017-01-26 11:17 | HHI.DCPOC ---
Discharge Care Plan Diagnosis: (1) Afib (2) Sore throat (3) Tongue mass (4) Thrombocytopenia Goals to Promote Your Health * To prevent worsening of your condition and complications * To maintain your health at the optimal level Directions to Meet Your Goals Take your medications as prescribed Follow your dietary instruction Follow activity as directed Keep your appointments as scheduled Take your immunizations and boosters as scheduled If your symptoms worsen call your PCP, if no PCP go to Urgent Care Center or Emergency Room Smoking is Dangerous to Your Health. Avoid second hand smoke Call the 24-hour hour crisis hotline for domestic abuse at Ofe López MD Jan 26, 2017 11:17
--- NOTE | 2017-01-26 11:23 | HHI.DS ---
Discharge Summary Admission Date Jan 24, 2017 at 00:28 Discharge Date: Jan 26, 2017 Admitting Diagnosis tongue mass, thrombocytopenia, dyspnea episodes (1) DM2 (diabetes mellitus, type 2) ICD Code: E11.9 - Type 2 diabetes mellitus without complications (2) Afib ICD Code: I48.91 - Unspecified atrial fibrillation (3) Tongue mass ICD Code: R22.0 - Localized swelling, mass and lump, head Status: Acute (4) Thrombocytopenia ICD Code: D69.6 - Thrombocytopenia, unspecified Status: Acute Procedures none Brief History - From Admission This patient is a 81-year-old gentleman with a history of diabetes and hypertension and atrial fibrillation was consulted emergency room with 1 day of sore throat with progressive dysphagia and progressive cough. He denies any fevers or chills. No recent sick contacts. He says that he was having worsening pain and difficulty swallowing so he came to the emergency room. Pain was worse with movement. He has been admitted to the progressive care unit for closer evaluation. On exam he has minimal lymphadenopathy. Images of the neck due to show possible tongue mass. For this he was seen by the ENT specialist. Respirations are for antibiotics and further observation. Patient has and informed the plan. This discomfort is improved. His diet will be advanced and the patient will continue to monitor inpatient CBC/BMP: 01/25/17 0520 01/25/17 0520 Significant Findings Laboratory Tests Test 01/23/17 22:01 01/23/17 22:45 01/23/17 23:00 01/25/17 05:20 Platelet Count 17 TH/MM3 (150-450) 22 TH/MM3 (150-450) 46 TH/MM3 (150-450) Monocytes (%) (Auto) 12.5 % (0.0-8.0) Basophils (%) (Auto) 3.8 % (0.0-2.0) Monocytes # (Auto) 1.1 TH/MM3 (0-0.9) Basophils # (Auto) 0.3 TH/MM3 (0-0.2) Platelet Estimate LOW (NORMAL) LOW (NORMAL) Estimat Glomerular Filtration Rate 58 ML/MIN (>89) 73 ML/MIN (>89) White Blood Count 11.4 TH/MM3 (4.0-11.0) Red Blood Count 4.34 MIL/MM3 (4.50-5.90) Hematocrit 38.7 % (39.0-51.0) Neutrophils (%) (Auto) 89.3 % (16.0-70.0) Lymphocytes (%) (Auto) 5.1 % (9.0-44.0) Neutrophils # (Auto) 10.2 TH/MM3 (1.8-7.7) Lymphocytes # (Auto) 0.6 TH/MM3 (1.0-4.8) Blood Urea Nitrogen 22 MG/DL (7-18) Random Glucose 145 MG/DL (74-106) Calcium Level 8.1 MG/DL (8.5-10.1) PE at Discharge GENERAL: This is a well-nourished, well-developed patient, in no apparent distress. CARDIOVASCULAR: Regular rate and rhythm without murmurs, gallops, or rubs. RESPIRATORY: Clear to auscultation. Breath sounds equal bilaterally. No wheezes , rales, or rhonchi. GASTROINTESTINAL: Abdomen soft, non-tender, nondistended. Normal active bowel sounds MUSCULOSKELETAL: Extremities without clubbing, cyanosis, or edema. NEURO: Alert & Oriented x4 to person, place, time, situation. Moves all ext x4 Pt update on day of discharge Patient seen today in follow-up for ITP of her tongue mass. Doing well. No new complaints discharge plan discussed with patient and Nursing team Hospital Course Patient seen and treated for tongue mass (which appears to be inflammatory). He was seen by ENT who recommended a trial of antibiotics with outpatient follow -up Patient also apparently has ITP and was seen by the hematology team and recommended for short course of IVIG with IV steroids. Patient did well and his platelets recover from 17,040 6000. Patient had no signs of bleeding. His Xarelto which he takes for A. fib was resumed. Patient was recommended to follow-up with his normal non destructive testing inspector Dr. Emerson as well as his primary care physician. Pt Condition on Discharge: Good Discharge Disposition: Discharge Home Discharge Time: <= 30 minutes Discharge Instructions DIET: Follow Instructions for: As Tolerated, No Restrictions Activities you can perform: Regular-No Restrictions Follow up Referrals: Ear Nose Throat @ [facility] [place] ENT with monica Mera Otolaryngology - otolaryngology/facial plastic surgery [address], [place] [address] [phone] Oncology/Hematology - 2 Weeks with adan New Medications: Clindamycin (Cleocin) 300 Mg Cap 600 MG PO Q8H for Infection, #21 CAP 0 Refills Prednisone (Prednisone) 20 Mg Tab 20 MG PO DAILY for Inflammation, #5 TAB 0 Refills Continued Medications: Apixaban (Eliquis) 5 Mg Tab 5 MG PO BID for Blood Clot Prevention, #60 TAB 0 Refills Cholecalciferol (Vitamin D-1000) 1,000 Unit Tab 1000 UNITS PO DAILY for Nutritional Supplement, #1 BOTTLE 0 Refills Cyanocobalamin ER (Vitamin B-12 ER) 2,000 Mcg Tab 2000 MCG PO DAILY for Nutritional Supplement, #1 BOTTLE 0 Refills Diltiazem ER 24 HR (Diltiazem ER 24 HR) 360 Mg Caper 360 MG PO DAILY, #30 CAP 0 Refills Eplerenone (Eplerenone) 25 Mg Tab 25 MG PO BID, #30 TAB 0 Refills Losartan (Losartan) 25 Mg Tab 25 MG PO DAILY for Blood Pressure Management, #30 TAB 0 Refills Magnesium Oxide (Magnesium Oxide) 400 Mg Tab 400 MG PO BID for Nutritional Supplement, TAB 0 Refills Metformin ER (Metformin ER) 500 Mg Heena 500 MG PO DAILY for Blood Sugar Management, TAB 0 Refills With evening meal Metoprolol Succinate ER 24 HR (Metoprolol Succinate ER 24 HR) 200 Mg Tab 200 MG PO DAILY, #30 TAB 0 Refills Rosuvastatin (Rosuvastatin) 40 Mg Tab 40 MG PO DAILY for Cholesterol Management, #30 TAB 0 Refills [4X Probiotic] () 1 TAB PO DAILY [Lactose Intolerance] () 1 TAB PO DAILY Ofe López MD Jan 26, 2017 11:23
== END 2017-01-26 11:47 | disposition home or self-care (01) | DRG 158 ==
LOC: PHED 21:39 → PHEDA 01-24 00:28 → OBSVTOIN 01-24 00:28 → PHICU 01-24 01:30 → PH3B 01-24 16:33
PROVIDERS: ADMIT Hospitalist; ATTEND Hospitalist
PROC: 30233S1 Transfusion of Nonautologous Globulin into Peripheral Vein, Percutaneous Approach (ICD-10-PCS; principal; 2017-01-24)
PROC: 0CJS8ZZ Inspection of Larynx, Via Natural or Artificial Opening Endoscopic (ICD-10-PCS; 2017-01-24)
DX: K14.9 Disease of tongue, unspecified (principal); D69.3 Immune thrombocytopenic purpura; Z99.81 Dependence on supplemental oxygen; I48.91 Unspecified atrial fibrillation; R06.00 Dyspnea, unspecified; R13.10 Dysphagia, unspecified; E11.9 Type 2 diabetes mellitus without complications; G47.30 Sleep apnea, unspecified; J02.9 Acute pharyngitis, unspecified; I25.2 Old myocardial infarction; I10 Essential (primary) hypertension; I25.10 Atherosclerotic heart disease of native coronary artery without angina pectoris; H91.90 Unspecified hearing loss, unspecified ear; K21.9 Gastro-esophageal reflux disease without esophagitis; E78.00 Pure hypercholesterolemia, unspecified; M19.90 Unspecified osteoarthritis, unspecified site; Z96.653 Presence of artificial knee joint, bilateral; Z79.01 Long term (current) use of anticoagulants; Z87.442 Personal history of urinary calculi; Z86.010 Personal history of colon polyps; Z96.641 Presence of right artificial hip joint; Z82.49 Family history of ischemic heart disease and other diseases of the circulatory system; Z66 Do not resuscitate; Z95.0 Presence of cardiac pacemaker
CPT/HCPCS: 70491; 71010; 80048; 80053; 82948; 85025; 85049; 85384; 85610; 85730; 87081; 87804; 87880; 94002; 94003; J1459; J2930; J7040; J7060; J7512; Q9967